=== PATIENT | male | born 1950 | race Two or more races ===

== ENCOUNTER → 2024-05-08 | Emergency (ER) | payer SELFPAY ==
[~2024-05-08] VITALS: Ht 175.3 cm; Wt 66.0 kg
[~2024-05-08] MED LIST: CARB15DR63 EACH EAR; CARBAMIDE PEROXIDE 6.5% OTIC SOLN 15ML LEFT EAR ONE
[2024-05-08 19:36] VITALS: BP 182/86; PULSE 91; RESP 16; TEMP 98; O2SAT 99
== END ==
LOC: ER 19:29
DX: H61.22 Impacted cerumen, left ear (principal)
CPT/HCPCS: 99282; Z7610